=== PATIENT | female | born 1935 | race Caucasian/White ===

== ENCOUNTER 2020-08-07 14:24 | Inpatient (IN) | payer MEDICARE ==
[~2020-08-07] VITALS: Ht 149.9 cm; Wt 49.9 kg
[2020-08-07 15:36] LABS: BASOPHILS % 0.4 % (0.0-1.0); EOSINOPHILS # (AUTO) 0.1 (0.0-0.4); EOSINOPHILS % 1.3 % (0.0-6.0); HEMOGLOBIN 11.6 g/dL (12.0-16.0); LYMPHOCYTES # (AUTO) 1.5 (1.0-3.2); LYMPHOCYTES % 22.4 % (18.0-39.1); MEAN CORPUSCULAR HEMOGLOBIN 26.9 pg (28-32); MEAN CORPUSCULAR HGB CONC 28.3 g/dL (31-35); MEAN CORPUSCULAR VOLUME 95.1 fL (81-99); MONOCYTES # (AUTO) 0.4 (0.2-0.8); MONOCYTES % 6.1 % (4.4-11.3); NEUTROPHILS # (AUTO) 4.7 (2.1-6.9); NEUTROPHILS % 69.2 % (38.7-80.0); PLATELET COUNT 217 x10e3/uL (140-360); RED BLOOD COUNT 4.31 x10e6/uL (3.6-5.1); RED CELL DISTRIBUTION WIDTH 16.7 % (11.7-14.4)
[2020-08-07 15:39] LABS: CLARITY,URINE CLEAR (CLEAR); COLOR,URINE YELLOW (YELLOW); KETONES,URINE 1+ (NEGATIVE); LEUKOCYTE ESTERASE ,URINE NEGATIVE (NEGATIVE); NITRITE,URINE NEGATIVE (NEGATIVE); PROTEIN,URINE DIPSTICK NEGATIVE (NEGATIVE); URINE UROBILINOGEN 1 mg/dL (0.2 - 1)
[2020-08-07 15:40] LABS: BILIRUBIN,URINE MODERATE (NEGATIVE)
[2020-08-07] MEDS ORDERED: SODIUM CHLORIDE 0.9% 1000ML 1,000 ML IV STA (15:56)
[2020-08-07 16:05] LABS: ALANINE AMINOTRANSFERASE 11 IU/L (0-55); ALBUMIN 2.3 g/dL (3.5-5.0); ALBUMIN/GLOBULIN RATIO 0.6 (0.8-2.0); ALKALINE PHOSPHATASE 68 IU/L (40-150); BLOOD UREA NITROGEN 27 mg/dL (7-26); BUN/CREATININE RATIO 34 (6-25); CALCIUM 7.9 mg/dL (8.4-10.2); CARBON DIOXIDE 24 mmol/L (22-29); CHLORIDE 128 mmol/L (98-107); CREATININE, SERUM 0.79 mg/dL (0.57-1.11); EST GLOMERULAR FILTRATION RATE > 60 ML/MIN (60-); GLUCOSE 141 mg/dL (74-118)
[2020-08-07 16:07] LABS: SODIUM 163 mmol/L (136-145)
[2020-08-07 16:31] LABS: BACTERIA,URINE FEW /HPF; RBC,URINE 0-5 /HPF (0-5); WBC,URINE (MAN) 0-5 /HPF (0-5)
[2020-08-07 16:32] LABS: AMORPHOUS SEDIMENT,URINE FEW (FEW); CALCIUM OXALATE CRYSTALS,UR FEW (FEW); EPITHELIAL CELLS,URINE FEW /LPF; MUCUS,URINE MANY (RARE)
[2020-08-07] MEDS ORDERED: SODIUM CHLORIDE 0.9% 500ML 500 ML IV ONE (17:30)
[2020-08-07] MEDS ORDERED: VANCOMYCIN 1GM/NS 250 ML 250 ML IV ONE (17:45)
[2020-08-07] MEDS: PIPER-TAZ 3.375 GM 50 ML IV SCH (17:52)
[2020-08-07] MEDS ORDERED: ONDANSETRON HCL INJ 2MG/ML 2ML 2 MG/ML VIAL IV PRN (18:30)
[2020-08-07] MEDS: DEXTROSE 5%/0.45% SOD CHL 1,000 ML IV SCH (18:50)
[2020-08-07 23:00] VITALS: BP_SYST 129; BP_DIAS 86; BP_DIAS 96
[2020-08-07 23:36] LABS: MAGNESIUM 2.2 MG/DL (1.3-2.1)
[2020-08-07 23:42] LABS: CREATINE KINASE MB 2.5 ng/mL (0-5.0)
[2020-08-07] MEDS ORDERED: FLEET ENEMA133 ML PR (23:43)
[2020-08-07] MEDS ORDERED: MEGESTROL400 MG/10 PO (23:43)
[2020-08-07] MEDS ORDERED: ZYVOX600 MG PO (23:43)
[2020-08-07] MEDS ORDERED: POTASSIUM CHLO20 ME1 PO (23:43)
[2020-08-07] MEDS ORDERED: SIMVASTATIN40 MG PO (23:43)
[2020-08-07] MEDS ORDERED: MULTI-VITAMIN1 EACH PO (23:43)
[2020-08-07] MEDS ORDERED: MELATONIN3 MG PO (23:43)
[2020-08-07] MEDS ORDERED: MAGNESIUM OXID400 MG PO (23:43)
[2020-08-07] MEDS ORDERED: MIRTAZAPINE15 MG PO (23:43)
[2020-08-07] MEDS ORDERED: santyl TOP (23:43)
[2020-08-07] MEDS ORDERED: ASPIRIN CHEW81 MG PO (23:43)
[2020-08-08] MEDS: PIPER-TAZ 3.375 GM 50 ML IV SCH ×5 (01:14→23:37)
[2020-08-08 02:58] VITALS: BP 129/86
[2020-08-08 04:00] VITALS: BP 121/80
[2020-08-08 05:29] LABS: BASOPHILS % 0.3 % (0.0-1.0); EOSINOPHILS # (AUTO) 0.2 (0.0-0.4); EOSINOPHILS % 2.4 % (0.0-6.0); HEMATOCRIT 37.8 % (34.2-44.1); HEMOGLOBIN 10.4 g/dL (12.0-16.0); LYMPHOCYTES # (AUTO) 1.5 (1.0-3.2); LYMPHOCYTES % 17.2 % (18.0-39.1); MEAN CORPUSCULAR HEMOGLOBIN 26.8 pg (28-32); MEAN CORPUSCULAR HGB CONC 27.5 g/dL (31-35); MEAN CORPUSCULAR VOLUME 97.4 fL (81-99); MONOCYTES # (AUTO) 0.5 (0.2-0.8); MONOCYTES % 5.2 % (4.4-11.3); NEUTROPHILS # (AUTO) 6.5 (2.1-6.9); NEUTROPHILS % 74.3 % (38.7-80.0); PLATELET COUNT 187 x10e3/uL (140-360); RED BLOOD COUNT 3.88 x10e6/uL (3.6-5.1)
[2020-08-08 05:54] LABS: ALANINE AMINOTRANSFERASE 9 IU/L (0-55); ALBUMIN/GLOBULIN RATIO 0.6 (0.8-2.0); ALKALINE PHOSPHATASE 60 IU/L (40-150); ANION GAP 11.7 mmol/L (8-16); BLOOD UREA NITROGEN 22 mg/dL (7-26); BUN/CREATININE RATIO 29 (6-25); CALCIUM 7.5 mg/dL (8.4-10.2); CARBON DIOXIDE 22 mmol/L (22-29); CHLORIDE 132 mmol/L (98-107); CREATININE, SERUM 0.75 mg/dL (0.57-1.11); EST GLOMERULAR FILTRATION RATE > 60 ML/MIN (60-); GLUCOSE 123 mg/dL (74-118); POTASSIUM 3.7 mmol/L (3.5-5.1)
[2020-08-08 05:57] LABS: SODIUM 162 mmol/L (136-145)
[2020-08-08 08:28] VITALS: BP 122/75
[2020-08-08 09:19] LABS: CREATINE KINASE MB 2.9 ng/mL (0-5.0)
[2020-08-08 10:36] LABS: CREATINE KINASE MB 2.5 ng/mL (0-5.0)
[2020-08-08] MEDS: DEXTROSE 5%/0.45% SOD CHL 1,000 ML IV SCH (12:04)
[2020-08-08 16:04] VITALS: BP 127/88
[2020-08-08 20:00] VITALS: BP 137/86
[2020-08-08 23:02] VITALS: BP 137/86
[2020-08-09] VITALS (8 sets, daily range): BP systolic 100–132; BP diastolic 62–94
[2020-08-09] MEDS: PIPER-TAZ 3.375 GM 50 ML IV SCH (06:00)
[2020-08-09 06:10] LABS: BASOPHILS % 0.5 % (0.0-1.0); EOSINOPHILS # (AUTO) 0.2 (0.0-0.4); EOSINOPHILS % 3.9 % (0.0-6.0); HEMATOCRIT 36.2 % (34.2-44.1); HEMOGLOBIN 9.9 g/dL (12.0-16.0); LYMPHOCYTES # (AUTO) 1.4 (1.0-3.2); LYMPHOCYTES % 24.3 % (18.0-39.1); MEAN CORPUSCULAR HGB CONC 27.3 g/dL (31-35); MEAN CORPUSCULAR VOLUME 98.6 fL (81-99); MONOCYTES # (AUTO) 0.3 (0.2-0.8); NEUTROPHILS # (AUTO) 3.7 (2.1-6.9); NEUTROPHILS % 64.6 % (38.7-80.0); PLATELET COUNT 152 x10e3/uL (140-360); RED BLOOD COUNT 3.67 x10e6/uL (3.6-5.1)
[2020-08-09 06:58] LABS: BLOOD UREA NITROGEN 17 mg/dL (7-26); BUN/CREATININE RATIO 25 (6-25); CALCIUM 7.7 mg/dL (8.4-10.2); CARBON DIOXIDE 18 mmol/L (22-29); CHLORIDE 130 mmol/L (98-107); CREATININE, SERUM 0.69 mg/dL (0.57-1.11); EST GLOMERULAR FILTRATION RATE > 60 ML/MIN (60-); GLUCOSE 109 mg/dL (74-118); SODIUM 158 mmol/L (136-145)
[2020-08-09] MEDS: DEXTROSE 5%/0.45% SOD CHL 1,000 ML IV SCH (11:02)
[2020-08-09] MEDS: CEFEPIME 1GM/NS 0.9% 50 ML 50 ML IV SCH ×2 (15:16→21:51)
[2020-08-10] VITALS (8 sets, daily range): BP systolic 98–125; BP diastolic 59–86
[2020-08-10] MEDS: DEXTROSE 5%/0.45% SOD CHL 1,000 ML IV SCH ×2 (02:00→13:53)
[2020-08-10] MEDS: CEFEPIME 1GM/NS 0.9% 50 ML 50 ML IV SCH ×3 (05:53→22:48)
[2020-08-10 17:09] LABS: ALANINE AMINOTRANSFERASE 10 IU/L (0-55); ALBUMIN 1.6 g/dL (3.5-5.0); ALBUMIN/GLOBULIN RATIO 0.6 (0.8-2.0); ALKALINE PHOSPHATASE 47 IU/L (40-150); ANION GAP 9.8 mmol/L (8-16); BLOOD UREA NITROGEN 13 mg/dL (7-26); BUN/CREATININE RATIO 26 (6-25); CALCIUM 7.3 mg/dL (8.4-10.2); CARBON DIOXIDE 19 mmol/L (22-29); CHLORIDE 122 mmol/L (98-107); EST GLOMERULAR FILTRATION RATE > 60 ML/MIN (60-); GLUCOSE 101 mg/dL (74-118); SODIUM 148 mmol/L (136-145)
[2020-08-10 17:13] LABS: POTASSIUM 2.8 mmol/L (3.5-5.1)
[2020-08-10] MEDS ORDERED: POTASSIUM CHLORIDE 20 MEQ TAB CR PO ONE ×3 (18:23→22:00)
[2020-08-10] MEDS ORDERED: POTASSIUM CHLORIDE 20MEQ/100ML 100 ML IV ONE ×2 (18:30→20:30)
[2020-08-10] MEDS ORDERED: POTASSIUM CHLORIDE 10MEQ EA PO ONE (18:30)
[2020-08-11] VITALS (8 sets, daily range): BP systolic 117–142; BP diastolic 68–94
[2020-08-11] MEDS ORDERED: POTASSIUM CHLORIDE 20MEQ/100ML 100 ML IV ONE (01:00)
[2020-08-11] MEDS: DEXTROSE 5%/0.45% SOD CHL 1,000 ML IV SCH ×2 (02:15→16:21)
[2020-08-11] MEDS ORDERED: POTASSIUM CHLORIDE 20MEQ/100ML 100 ML ONE (02:17)
[2020-08-11] MEDS: CEFEPIME 1GM/NS 0.9% 50 ML 50 ML IV SCH ×3 (05:55→22:14)
[2020-08-11 13:15] LABS: ANION GAP 9.5 mmol/L (8-16); BLOOD UREA NITROGEN 11 mg/dL (7-26); BUN/CREATININE RATIO 22 (6-25); CALCIUM 7.4 mg/dL (8.4-10.2); CARBON DIOXIDE 17 mmol/L (22-29); CHLORIDE 123 mmol/L (98-107); CREATININE, SERUM 0.51 mg/dL (0.57-1.11); EST GLOMERULAR FILTRATION RATE > 60 ML/MIN (60-); GLUCOSE 151 mg/dL (74-118); POTASSIUM 3.5 mmol/L (3.5-5.1); SODIUM 146 mmol/L (136-145)
[2020-08-12] VITALS (7 sets, daily range): BP systolic 110–143; BP diastolic 83–103
[2020-08-12 06:01] LABS: BASOPHILS % 0.5 % (0.0-1.0); EOSINOPHILS # (AUTO) 0.2 (0.0-0.4); EOSINOPHILS % 2.6 % (0.0-6.0); HEMATOCRIT 32.1 % (34.2-44.1); HEMOGLOBIN 9.8 g/dL (12.0-16.0); LYMPHOCYTES # (AUTO) 1.5 (1.0-3.2); LYMPHOCYTES % 17.3 % (18.0-39.1); MEAN CORPUSCULAR HEMOGLOBIN 26.7 pg (28-32); MEAN CORPUSCULAR HGB CONC 30.5 g/dL (31-35); MEAN CORPUSCULAR VOLUME 87.5 fL (81-99); MONOCYTES # (AUTO) 0.7 (0.2-0.8); MONOCYTES % 7.8 % (4.4-11.3); NEUTROPHILS % 70.2 % (38.7-80.0); PLATELET COUNT 177 x10e3/uL (140-360); RED BLOOD COUNT 3.67 x10e6/uL (3.6-5.1); RED CELL DISTRIBUTION WIDTH 16.2 % (11.7-14.4)
[2020-08-12] MEDS: DEXTROSE 5%/0.45% SOD CHL 1,000 ML IV SCH ×2 (06:02→21:12)
[2020-08-12] MEDS: CEFEPIME 1GM/NS 0.9% 50 ML 50 ML IV SCH ×3 (06:02→21:12)
[2020-08-12 06:20] LABS: BLOOD UREA NITROGEN 9 mg/dL (7-26); BUN/CREATININE RATIO 18 (6-25); CALCIUM 7.3 mg/dL (8.4-10.2); CARBON DIOXIDE 18 mmol/L (22-29); CHLORIDE 119 mmol/L (98-107); CREATININE, SERUM 0.49 mg/dL (0.57-1.11); EST GLOMERULAR FILTRATION RATE > 60 ML/MIN (60-); GLUCOSE 106 mg/dL (74-118); SODIUM 143 mmol/L (136-145)
[2020-08-12] MEDS: MEGACE 400MG/ 10ML CUP PO SCH (09:07)
[2020-08-12] MEDS ORDERED: POTASSIUM CHLORIDE 20MEQ/100ML 300 ML IV ONE (11:15)
[2020-08-12] MEDS: BALSAM PERU/CASTOR OIL 60 GM OINT...G. TP SCH (15:18)
[2020-08-13 00:35] VITALS: BP 131/97
[2020-08-13 04:00] VITALS: BP 117/92
[2020-08-13] MEDS: CEFEPIME 1GM/NS 0.9% 50 ML 50 ML IV SCH (05:13)
[2020-08-13 07:00] LABS: ANION GAP 10.5 mmol/L (8-16); BLOOD UREA NITROGEN 7 mg/dL (7-26); BUN/CREATININE RATIO 14 (6-25); CALCIUM 7.3 mg/dL (8.4-10.2); CARBON DIOXIDE 18 mmol/L (22-29); CHLORIDE 115 mmol/L (98-107); CREATININE, SERUM 0.51 mg/dL (0.57-1.11); EST GLOMERULAR FILTRATION RATE > 60 ML/MIN (60-); GLUCOSE 119 mg/dL (74-118); POTASSIUM 3.5 mmol/L (3.5-5.1); SODIUM 140 mmol/L (136-145)
[2020-08-13 08:00] VITALS: BP 123/89
[2020-08-13] MEDS: BALSAM PERU/CASTOR OIL 60 GM OINT...G. TP SCH (08:57)
[2020-08-13] MEDS: MEGACE 400MG/ 10ML CUP PO SCH (08:57)
[2020-08-13] MEDS: DEXTROSE 5%/0.45% SOD CHL 1,000 ML IV SCH (08:57)
[2020-08-13 09:32] VITALS: BP 123/89
[2020-08-13 10:24] VITALS: BP 123/89
== END 2020-08-13 12:22 | disposition hospice, inpatient (51) | DRG 871 ==
LOC: ER 15:55 → ERHOLD 18:24 → IMCU 22:08 → MED/SURG3 08-12 23:31
DX: A41.9 Sepsis, unspecified organism (principal); J69.0 Pneumonitis due to inhalation of food and vomit; E87.0 Hyperosmolality and hypernatremia; N39.0 Urinary tract infection, site not specified; G93.40 Encephalopathy, unspecified; E46 Unspecified protein-calorie malnutrition; E44.1 Mild protein-calorie malnutrition; E86.0 Dehydration; Z88.5 Allergy status to narcotic agent; F03.90 Unspecified dementia, unspecified severity, without behavioral disturbance, psychotic disturbance, mood disturbance, and anxiety; Z11.59 Encounter for screening for other viral diseases; D64.9 Anemia, unspecified; Z68.22 Body mass index [BMI] 22.0-22.9, adult; E87.6 Hypokalemia
CPT/HCPCS: 36415; 70450; 71045; 80048; 80053; 81001; 82140; 82550; 82553; 83605; 83735; 84484; 85025; 87040; 87086; 93005; 96360; 99251; 99284; J0692; J2543; J3370; J3480; J7030; J7040; U0002